=== PATIENT | male | born 1975 | race Caucasian/White ===

== ENCOUNTER → 2023-10-17 06:21 | Day surgery (SDC) | payer BC, SELFPAY | LOC: GI 06:21 | PROVIDERS: ATTENDING PHYSICIAN Internal Medicine; FAMILY PHYSICIAN Nurse Practitioner Family | DX: Z12.11 Encounter for screening for malignant neoplasm of colon (principal); K57.30 Diverticulosis of large intestine without perforation or abscess without bleeding; K64.8 Other hemorrhoids; Z83.719 Family history of colon polyps, unspecified | CPT/HCPCS: G0105 ==